=== PATIENT | male | born 1965 | race Caucasian/White ===

== ENCOUNTER 2018-12-29 09:27 | Emergency (ER) | payer BC ==
[2018-12-29] MEDS ORDERED: MORPHINE 4 MG/ML SYR ONE (09:55)
[2018-12-29] MEDS ORDERED: ONDANSETRON 4 MG/2 ML VIAL ONE (09:55)
[2018-12-29] MEDS ORDERED: NA CHLORIDE 0.9% 1,000 ML ONE (09:55)
[2018-12-29 10:06] LABS: Absolute Lymphocytes (CBC) 1.5 K/uL (0.7-4.9); Basophils % 0.5 % (0-1.3); Hematocrit 47.3 % (39.6-49.0); Lymphocytes % 15.5 % (15.3-44.8); MPV 8.6 fL (7.6-11.3); RBC Red Blood Cell Count 5.23 M/uL (4.33-5.43)
[2018-12-29 10:31] LABS: Albumin 3.8 g/dL (3.4-5.0); Bilirubin Direct 0.1 mg/dL (0-0.2); Bilirubin Total 0.5 mg/dL (0.2-1.0); Potassium 4.2 mmol/L (3.5-5.1); Protein, Total 7.5 g/dL (6.4-8.2)
--- NOTE | 2018-12-29 11:10 | RAD REPORT ---
EXAM DESCRIPTION: CT - Abdomen Pelvis W Contrast - 12/29/2018 10:54 am CLINICAL HISTORY: LLQ pain, eval for diverticulitis/colitis;Abd pain COMPARISON: None. TECHNIQUE: Biphasic, helical CT imaging of the abdomen and pelvis was performed following 100 ml non -ionic IV contrast. No oral contrast was given. All CT scans are performed using dose optimization technique as appropriate and may include automated exposure control or mA/KV adjustment according to patient size. FINDINGS: No suspicious findings in the lung bases. Liver shows a prominent fatty infiltration pattern with no focal liver lesion. Spleen and pancreas sh ow no suspicious findings. Gallbladder and biliary tree are also without suspicious finding. Symmetric renal function is seen with no hydronephrosis or suspicious renal mass. No pyelonephritis o r acute parenchymal process. Small renal parenchymal cysts are present. No urinary bladder abnormalit y. Prostate gland and seminal vesicles are normal range. No adrenal abnormalities. No stomach or small bowel abnormality. No appendicitis. From cecum through splenic flexure no acute f indings are seen. A 7 centimeter long segment of the descending sigmoid junction shows wall thickenin g with inflammatory stranding. No abscess or free air. Patient has little diverticulosis. Left-sided colon finding could still represent diverticulitis. Nonspecific colitis or even colon malignancy are possibilities. A follow-up colonoscopy will be needed following medical management. Elsewhere no free air, free fluid or inflammatory stranding. Patient has a very small umbilical hernia. No suspicious bony findings. IMPRESSION: Approximately 7 centimeter long segment of the descending-sigmoid colon junction shows c ircumferential wall thickening with inflammatory stranding. No abscess, free air or surgically emerge nt finding. Patient has very minimal diverticulosis in the colon. Diverticulitis is still a primary consideration . Nonspecific colitis an even colon malignancy are differential considerations. Diffuse fatty infiltration of the liver.
[2018-12-29] MEDS ORDERED: CIPROFLOXACIN 400mg IV 400 MG/200 ML BAG IV ONE (11:31)
[2018-12-29] MEDS ORDERED: METRONIDAZOLE 500mg IVPB 500 MG/100 ML BAG IV ONE (11:31)
--- NOTE | 2018-12-29 11:33 | ER ---
Nurse's Notes [facility] Name: Naresh Head Age: 53 yrs Sex: Male : 1965 Arrival Date: 12/29/2018 Time: 09:31 Bed 14 Private MD: out of town, doctor Diagnosis: Diverticulitis of large intestine without perforation or abscess without bleeding Presentation: 12/29 09:35 Presenting complaint: Patient states: for the last few days i have had lower RIGHT tw2 abdomen pain, and its gotten worse and it hurts to the touch, Denies N/v/d. Transition of care: patient was not received from another setting of care. Onset of symptoms was December 29, 2018. 09:35 Method Of Arrival: Ambulatory tw2 09:35 Acuity: DELMAR 3 tw2 09:35 Risk Assessment: Do you want to hurt yourself or someone else? Patient reports no tw2 desire to harm self or others. Initial Sepsis Screen: Does the patient meet any 2 criteria? No. Patient's initial sepsis screen is negative. Does the patient have a suspected source of infection? No. Patient's initial sepsis screen is negative. Care prior to arrival: None. Triage Assessment: 09:36 General: Appears uncomfortable, Behavior is calm, cooperative, appropriate for age. tw2 Pain: Complains of pain in left lower quadrant. GI: Patient currently denies diarrhea, nausea, vomiting, "about a week ago i had black poop but i thought it was from what i ate". Historical: - Allergies: 09:36 No Known Allergies; tw2 - PMHx: 09:36 None; tw2 - PSHx: 09:36 None; tw2 - Immunization history:: Adult Immunizations. - Social history:: Smoking status: . - Ebola Screening: : Patient denies travel to an Ebola-affected area in the 21 days before illness onset. - Family history:: not pertinent. - Hospitalizations: : No recent hospitalization is reported. Screenin:43 Abuse screen: Denies threats or abuse. Nutritional screening: No deficits noted. rb1 Tuberculosis screening: No symptoms or risk factors identified. Fall Risk None identified. Assessment: 09:43 General: Appears in no apparent distress. comfortable, Behavior is calm, cooperative. rb1 General: Denies fever. Pain: Complains of pain in left lower quadrant Pain does not radiate. Pain currently is 1 out of 10 on a pain scale. at worst was 8 out of 10 on a pain scale. Pain began x 5 days. Neuro: Level of Consciousness is awake, alert, obeys commands, Oriented to person, place, time, situation. Cardiovascular: Capillary refill < 3 seconds is brisk in bilateral fingers. Respiratory: Airway is patent Respiratory effort is even, unlabored, Respiratory pattern is regular, symmetrical. GI: Bowel sounds present X 4 quads. Abdomen is tender to palpation in left lower quadrant Patient currently denies diarrhea, nausea, vomiting. : No signs and/or symptoms were reported regarding the genitourinary system. 09:43 Derm: Skin is pink, warm \\T\\ dry. rb1 10:45 Reassessment: Patient appears in no apparent distress at this time. Went to CT. rb1 11:36 Reassessment: Patient appears in no apparent distress at this time. Patient and/or rb1 family updated on plan of care and expected duration. Pain level reassessed. Patient is alert, oriented x 3, equal unlabored respirations, skin warm/dry/pink. 11:41 Reassessment: Discharge pending due to IV antibiotics infusing. rb1 12:40 Reassessment: Patient appears in no apparent distress at this time. No changes from rb1 previously documented assessment. Discharge pending due to Cipro infusing. 13:33 Reassessment: Patient appears in no apparent distress at this time. Patient and/or rb1 family updated on plan of care and expected duration. Pain level reassessed. Patient is alert, oriented x 3, equal unlabored respirations, skin warm/dry/pink. Vital Signs: 09:37 BP 162 / 89; Pulse 116; Resp 17; Temp 97.5(TE); Pulse Ox 96% on R/A; Weight 104.33 kg tw2 (R); Height 5 ft. 11 in. (180.34 cm); Pain 8/10; 10:30 BP 145 / 93; Pulse 85; Resp 18; Pulse Ox 97% on R/A; rb1 11:30 BP 139 / 84; Pulse 85; Resp 17; Pulse Ox 97% on R/A; Pain 2/10; rb1 12:30 BP 136 / 68; Pulse 88; Resp 18; Pulse Ox 98% on R/A; Pain 1/10; rb1 13:30 BP 128 / 76; Pulse 68; Resp 16; Temp 98.0(O); Pulse Ox 99% on R/A; Pain 2/10; rb1 09:37 Body Mass Index 32.08 (104.33 kg, 180.34 cm) tw2 09:37 "when you touch it" tw2 ED Course: 09:31 Patient arrived in ED. ag5 09:32 out of town, doctor is Private Physician. ag5 09:35 Triage completed. tw2 09:36 Arm band placed on. tw2 09:39 Cecil Barros MD is Attending Physician. rn 09:43 Patient has correct armband on for positive identification. Bed in low position. Call rb1 light in reach. Side rails up X 1. Pulse ox on. NIBP on. 09:49 Elvira Sultana, ENE is Primary Nurse. rb1 09:57 Initial lab(s) drawn, by me, sent to lab. Inserted saline lock: 22 gauge in right jb1 antecubital area, using aseptic technique. Blood collected. 10:54 CT Abd/Pelvis - IV Contrast Only In Process Unspecified. EDMS 11:32 Anjel Bernal MD is Referral Physician. rn 11:57 Awaiting: completion of IV abx PRIOR to discharge. tw2 13:49 No provider procedures requiring assistance completed. IV discontinued, intact, rb1 bleeding controlled, No redness/swelling at site. Pressure dressing applied. Administered Medications: 10:00 Drug: NS 0.9% 1000 ml Route: IV; Rate: 1000 ml; Site: right antecubital; rb1 11:13 Follow up: IV Status: Completed infusion rb1 10:00 Drug: morphine 4 mg Route: IVP; Site: right antecubital; rb1 10:15 Follow up: Response: No adverse reaction; Pain is decreased rb1 10:00 Drug: Zofran 4 mg Route: IVP; Site: right antecubital; rb1 10:15 Follow up: Response: No adverse reaction rb1 11:34 Drug: Flagyl 500 mg Volume: 100 ml; Route: IVPB; Rate: 200 ml/hr; Infused Over: 30 rb1 mins; Site: right antecubital; 12:33 Follow up: Response: No adverse reaction; IV Status: Completed infusion rb1 12:38 Drug: Cipro 400 mg Volume: 200 ml; Route: IVPB; Infused Over: 60 mins; Site: right rb1 antecubital; 13:43 Follow up: Response: No adverse reaction; IV Status: Completed infusion rb1 Outcome: 11:33 Discharge ordered by . rn 13:49 Patient left the ED. rb1 13:49 Discharged to home ambulatory. rb1 13:49 Condition: stable 13:49 Discharge instructions given to patient, Instructed on discharge instructions, follow up and referral plans. medication usage, Demonstrated understanding of instructions, follow-up care, medications, Prescriptions given X 4. Signatures: Dispatcher [employer] Jose Barton jb1 Cecil Barros MD MD rn Barber, Rebecca, RN RN rb1 Marilia Gordon RN RN tw2 Aspen Daley ag5
--- NOTE | 2018-12-29 11:34 | EDPHYS ---
Physician Documentation [facility] Name: Naresh Head Age: 53 yrs Sex: Male : 1965 Arrival Date: 12/29/2018 Time: 09:31 Bed 14 Private MD: out of town, doctor ED Physician Cecil Barros HPI: 12/29 09:59 This 53 yrs old Male presents to ER via Ambulatory with complaints of rn Abdominal Pain. 09:59 The patient presents with abdominal pain in the left lower quadrant. Onset: The rn symptoms/episode began/occurred 4 day(s) ago. The symptoms do not radiate. Associated signs and symptoms: Pertinent negatives: nausea and vomiting, anorexia, blood in stools, chest pain, constipation, diarrhea, dysuria, fever, headache, hematuria, nausea, palpitations, shortness of breath, testicular pain, vomiting, vomiting blood. The symptoms are described as sharp, stabbing. Modifying factors: The symptoms are alleviated by nothing, the symptoms are aggravated by touching the area. Severity of pain: At its worst the pain was moderate in the emergency department the pain is unchanged. The patient has not experienced similar symptoms in the past. The patient has not recently seen a physician. Reports LLQ abd pain, began 4 days ago, no fever, pain with movement and palpation, no vomiting/diarrhea. No blood in stool. Hurts to walk and drive here. Denies testicular pain or swelling.. Historical: - Allergies: 09:36 No Known Allergies; tw2 - PMHx: 09:36 None; tw2 - PSHx: 09:36 None; tw2 - Immunization history:: Adult Immunizations. - Social history:: Smoking status: . - Ebola Screening: : Patient denies travel to an Ebola-affected area in the 21 days before illness onset. - Family history:: not pertinent. - Hospitalizations: : No recent hospitalization is reported. ROS: 09:59 Constitutional: Negative for fever, chills, and weight loss, Eyes: Negative for injury, rn pain, redness, and discharge, Cardiovascular: Negative for chest pain, palpitations, and edema, Respiratory: Negative for shortness of breath, cough, wheezing, and pleuritic chest pain, Abdomen/GI: + abd pain, negative for nausea/vomiting/diarrhea MS/Extremity: Negative for injury and deformity, Skin: Negative for injury, rash, and discoloration, Neuro: Negative for headache, weakness, numbness, tingling, and seizure. Exam: 09:59 Constitutional: This is a well developed, well nourished patient who is awake, alert, rn and in no acute distress. Head/Face: Normocephalic, atraumatic. ENT: MMM Cardiovascular: Tachycardic, regular Respiratory: No increased work of breathing, no retractions or nasal flaring. Abdomen/GI: + LLQ tenderness, no rebound, no masses Skin: Warm, dry with normal turgor. Normal color with no rashes, no lesions, and no evidence of cellulitis. MS/ Extremity: Pulses equal, no cyanosis. Neurovascular intact. Full, normal range of motion. Equal circumference. Neuro: Awake and alert, GCS 15, oriented to person, place, time, and situation. Cranial nerves II-XII grossly intact. Motor strength 5/5 in all extremities. Sensory grossly intact. Cerebellar exam normal. Normal gait. Vital Signs: 09:37 BP 162 / 89; Pulse 116; Resp 17; Temp 97.5(TE); Pulse Ox 96% on R/A; Weight 104.33 kg tw2 (R); Height 5 ft. 11 in. (180.34 cm); Pain 8/10; 10:30 BP 145 / 93; Pulse 85; Resp 18; Pulse Ox 97% on R/A; rb1 11:30 BP 139 / 84; Pulse 85; Resp 17; Pulse Ox 97% on R/A; Pain 2/10; rb1 12:30 BP 136 / 68; Pulse 88; Resp 18; Pulse Ox 98% on R/A; Pain 1/10; rb1 13:30 BP 128 / 76; Pulse 68; Resp 16; Temp 98.0(O); Pulse Ox 99% on R/A; Pain 2/10; rb1 09:37 Body Mass Index 32.08 (104.33 kg, 180.34 cm) tw2 09:37 "when you touch it" tw2 MDM: 09:39 Patient medically screened. rn 11:31 Differential diagnosis: bowel obstruction, diverticulitis. Data reviewed: vital signs, rn nurses notes, lab test result(s), radiologic studies, CT scan, and as a result, I will discharge patient. Counseling: I had a detailed discussion with the patient and/or guardian regarding: the historical points, exam findings, and any diagnostic results supporting the discharge/admit diagnosis, lab results, radiology results, the need for outpatient follow up, to return to the emergency department if symptoms worsen or persist or if there are any questions or concerns that arise at home. Response to treatment: the patient's symptoms have mildly improved after treatment, and as a result, I will discharge patient. Special discussion: I discussed with the patient/guardian in detail that at this point there is no indication for admission to the hospital. It is understood, however, that if the symptoms persist or worsen the patient needs to return immediately for re-evaluation. Based on the history and exam findings, there is no indication for further emergent testing or inpatient evaluation. I discussed with the patient/guardian the need to see the machine paint mixer for further evaluation of the symptoms. ED course: Pt with diverticulitis/colitis, recommend colonoscopy as outpt in 4-6 weeks since hasn't had one yet to rule out malignancy. Return precautions given and understood. . 12/29 09:46 Order name: Basic Metabolic Panel; Complete Time: 10:39 rn 12/29 09:46 Order name: CBC with Diff; Complete Time: 10:39 rn 12/29 09:46 Order name: Creatinine for Radiology; Complete Time: 10:39 rn 12/29 09:46 Order name: Hepatic Function; Complete Time: 10:39 rn 12/29 09:46 Order name: Lipase; Complete Time: 10:39 rn 12/29 09:46 Order name: CT Abd/Pelvis - IV Contrast Only; Complete Time: 11:20 rn 12/29 09:46 Order name: IV Saline Lock; Complete Time: 09:52 rn 12/29 09:46 Order name: Labs collected and sent; Complete Time: 09:52 rn Administered Medications: 10:00 Drug: NS 0.9% 1000 ml Route: IV; Rate: 1000 ml; Site: right antecubital; rb1 11:13 Follow up: IV Status: Completed infusion rb1 10:00 Drug: morphine 4 mg Route: IVP; Site: right antecubital; rb1 10:15 Follow up: Response: No adverse reaction; Pain is decreased rb1 10:00 Drug: Zofran 4 mg Route: IVP; Site: right antecubital; rb1 10:15 Follow up: Response: No adverse reaction rb1 11:34 Drug: Flagyl 500 mg Volume: 100 ml; Route: IVPB; Rate: 200 ml/hr; Infused Over: 30 rb1 mins; Site: right antecubital; 12:33 Follow up: Response: No adverse reaction; IV Status: Completed infusion rb1 12:38 Drug: Cipro 400 mg Volume: 200 ml; Route: IVPB; Infused Over: 60 mins; Site: right rb1 antecubital; 13:43 Follow up: Response: No adverse reaction; IV Status: Completed infusion rb1 Disposition: 12/29/18 11:33 Discharged to Home. Impression: Diverticulitis of large intestine without perforation or abscess without bleeding. - Condition is Stable. - Discharge Instructions: Diverticulitis, Colonoscopy. - Prescriptions for Zofran ODT 4 mg Oral tablet,disintegrating - place 1 tablet by TRANSLINGUAL route every 8 hours As needed; 20 tablet. Flagyl 500 mg Oral Tablet - take 1 tablet by ORAL route every 8 hours for 10 days; 30 tablet. Tylenol- Codeine #3 300-30 mg Oral Tablet - take 1 tablet by ORAL route every 6 hours As needed; 20 tablet. Cipro 500 mg Oral Tablet - take 1 tablet by ORAL route every 12 hours for 10 days; 20 tablet. - Medication Reconciliation Form, Thank You Letter, Antibiotic Education, Prescription Opioid Use form. - Follow up: Anjel Bernal MD; When: As needed; Reason: Recheck today's complaints, Re-evaluation by your physician. - Problem is new. - Symptoms have improved. Signatures: Dispatcher [employer] EDMS Cecil Barros MD MD rn Barber, Rebecca RN RN rb1 Marilia Gordon RN RN tw2 Corrections: (The following items were deleted from the chart) 13:49 11:33 12/29/2018 11:33 Discharged to Home. Impression: Diverticulitis of large rb1 intestine without perforation or abscess without bleeding. Condition is Stable. Forms are Medication Reconciliation Form, Thank You Letter, Antibiotic Education, Prescription Opioid Use. Follow up: Anjel Bernal; When: As needed; Reason: Recheck today's complaints, Re-evaluation by your physician. Problem is new. Symptoms have improved. rn
[2018-12-29 14:07] VITALS: TEMP 97.5
[2018-12-29 14:12] VITALS: BP 136/68; O2SAT 98
== END 2018-12-29 13:49 | disposition home or self-care (01) ==
LOC: ER 09:27
DX: K57.32 Diverticulitis of large intestine without perforation or abscess without bleeding (principal)
CPT/HCPCS: 96365; 96367; 96361; 85025; 80048; 36415; 80076; 83690; 74177; 96375; 99284; Q9967; J7030; J2405; J0744